=== PATIENT | female | born 1980 | race Caucasian/White ===

== ENCOUNTER 2016-10-15 02:55 | Emergency (ER) | payer MEDICAID ==
[~2016-10-15] VITALS: Ht 160 cm; Wt 88.0 kg
[~2016-10-15 02:55] MED LIST: CALCIUM500 MG PO; COLACE100 M1 PO; FOLIC ACID1 M1 PO; IRON325 M1 PO; PRENATAL1 TA3 PO
--- NOTE | 2016-10-15 03:33 | NUR ---
PT TAKEN TO BED 6
--- NOTE | 2016-10-15 03:49 | NUR ---
AD PATIENT PRESENTS TO ED WITH XHEST PAIN X10MIN PRIOR TO ARRIVAL . PT STATES SHE WAS LAYING DOWN WHEN SHE BEGAN TO FEEL THE CP . DENIES DIARRHEA; SKIN IS PINK/WARM/DRY; AAOX4 WITH EVEN AND STEADY GAIT; LUNGS CLEAR BL; HR EVEN AND REGULAR; PT DENIES ANY FEVER, SOB, OR COUGH AT THIS TIME; PATIENT STATES PAIN OF 10/10 AT THIS TIME; VSS; PATIENT POSITIONED FOR COMFORT; HOB ELEVATED; BEDRAILS UP X2; BED DOWN. ER MD MADE AWARE OF PT STATUS. AT BEDSIDE AT THIS TIME
--- NOTE | 2016-10-15 04:06 | NUR ---
Dr. Parks evaluating patient at bedside.
--- NOTE | 2016-10-15 05:05 | NUR ---
Ultrasound at bedside.
--- NOTE | 2016-10-15 06:54 | NUR ---
PER DR. IBARRA, Patient discharged with v/s stable. Written and verbal after care instructions given and explained. Patient verbalized understanding. Ambulatory with steady gait. All questions addressed prior to discharge. Advised to follow up with PMD. DC NOTE ONLY
[2016-10-15 06:59] VITALS: BP 151/82
== END 2016-10-15 06:54 | disposition home or self-care (01) ==
LOC: MED 02:55
DX: K80.20 Calculus of gallbladder without cholecystitis without obstruction (principal); R07.89 Other chest pain; Z79.899 Other long term (current) drug therapy
CPT/HCPCS: 36415; 71010; 76705; 80053; 80061; 82550; 82553; 83880; 84484; 85025; 85379; 93005; 99285; Q0092